=== PATIENT | female | born 1975 | race American Indian/Alaskan Native ===

== ENCOUNTER 2016-11-14 14:34 | Emergency (ER) | payer OTHER ==
[2016-11-14] MEDS ORDERED: Ketorolac 30 MG/ML SDV IVPUSH ONE (16:38)
--- NOTE | 2016-11-14 16:44 | EDM.PDOC ---
[id number] 4d HAVING SOME CHEST PAIN Time Seen by Provider: 11/14/16 14:45 Source of Information: Reports: Patient History Limitations: Reports: No Limitations - History of Present Illness INITIAL COMMENTS - FREE TEXT/NARRATIVE: pt arrived with chest pressure in the left chest. She has had this on and off for 2 weeks. She feels exercise sometimes makes it worse. She has not injured herself. Onset: Gradual Duration: Day(s): Location: Reports: Chest Associated Symptoms: Reports: Chest Pain, Other (pt had chest pressure) Left Chest Pain Score (Numeric/FACES): 2 - Related Data Allergies Allergy/AdvReac Type Severity Reaction Status Date / Time aspirin Allergy Other Verified 11/14/16 14:47 ibuprofen Allergy Hives Verified 11/14/16 14:47 Home Meds: Home Meds Acetaminophen [Tylenol Extra Strength] 1,000 mg PO ASDIRECTED 12/04/15 [History] Loratadine [Claritin] 10 mg PO DAILY 11/14/16 [History] Ranitidine [Zantac] 150 mg PO DAILY PRN 11/14/16 [History] Past Medical History HEENT History: Reports: Impaired Vision Gastrointestinal History: Reports: GERD 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: , Spontaneous Psychiatric History: Reports: Anxiety, Depression Hematologic History: Reports: Blood Transfusion(s) - Infectious Disease History Infectious Disease History: Reports: Chicken Pox - Past Surgical History HEENT Surgical History: Reports: Naso-Sinus Surgery GI Surgical History: Reports: Cholecystectomy Female Surgical History: Reports: D&C Social & Family History - Tobacco Use Smoking Status *Q: Never Smoker Second Hand Smoke Exposure: No - Caffeine Use Caffeine Use: Reports: Coffee, Energy Drinks, Soda - Recreational Drug Use Recreational Drug Use: No ED ROS GENERAL - Review of Systems Review Of Systems: See Below Constitutional: Reports: No Symptoms HEENT: Reports: No Symptoms Respiratory: Reports: No Symptoms Cardiovascular: Reports: Chest Pain, Other (chest pressure) Endocrine: Reports: No Symptoms GI/Abdominal: Reports: No Symptoms : Reports: No Symptoms Musculoskeletal: Reports: No Symptoms Skin: Reports: No Symptoms Neurological: Reports: No Symptoms ED EXAM, GENERAL - Physical Exam Exam: See Below Free Text/Narrative:: pt arrived with pain in the chest pressure type/ This has been going on and off for 2 weeks. Exam Limited By: No Limitations General Appearance: Alert, Anxious, Mild Distress Ears: Normal TMs Nose: Normal Inspection Throat/Mouth: Normal Inspection Head: Atraumatic Neck: Normal Inspection Respiratory/Chest: No Respiratory Distress Cardiovascular: Regular Rate, Rhythm GI/Abdominal: Soft, Non-Tender, No Distention (Female) Exam: Deferred Rectal (Female) Exam: Deferred Back Exam: Normal Inspection Extremities: Normal Inspection Neurological: Alert, Oriented, Normal Cognition Psychiatric: Anxious Course - Vital Signs Last Recorded V/S: Last Vital Signs Temp 37.1 C 11/14/16 14:44 Pulse 86 11/14/16 17:00 Resp 14 11/14/16 15:33 BP 116/88 11/14/16 17:00 Pulse Ox 95 11/14/16 17:00 - Orders/Labs/Meds Labs: Laboratory Tests 11/14/16 11/14/16 11/14/16 Range/Units 15:19 15:19 15:19 WBC 11.4 H (4.5-11.0) K/uL RBC 4.53 (3.30-5.50) M/uL Hgb 12.9 (12.0-15.0) g/dL Hct 40.1 (36.0-48.0) % MCV 89 (80-98) fL MCH 29 (27-31) pg MCHC 32 (32-36) % Plt Count 397 (150-400) K/uL Neut % (Auto) 69 H (36-66) % Lymph % (Auto) 23 L (24-44) % [place] % (Auto) 6 (2-6) % Eos % (Auto) 2 (2-4) % Baso % (Auto) 1 (0-1) % Sodium 137 L (140-148) mmol/L Potassium 4.0 (3.6-5.2) mmol/L Chloride 103 (100-108) mmol/L Carbon Dioxide 28 (21-32) mmol/L Anion Gap 10.0 (5.0-14.0) mmol/L BUN 11 (7-18) mg/dL Creatinine 0.6 (0.6-1.0) mg/dL Est Cr Clr Drug Dosing 106.55 mL/min Estimated GFR (MDRD) > 60 (>60) Glucose 103 (74-106) mg/dL Calcium 9.7 (8.5-10.1) mg/dL Total Bilirubin 0.9 (0.2-1.0) mg/dL AST 48 H (15-37) U/L ALT 59 (12-78) U/L Alkaline Phosphatase 117 H (46-116) U/L Creatine Kinase 59 (26-192) U/L Troponin I < 0.017 (0.000-0.056) ng/mL Total Protein 8.3 H (6.4-8.2) g/dL Albumin 3.5 (3.4-5.0) g/dL Globulin 4.8 H (2.3-3.5) g/dL Albumin/Globulin Ratio 0.7 L (1.2-2.2) Meds: Medications Discontinued Medications Generic Name Dose Route Start Last Admin Trade Name Freq PRN Reason Stop Dose Admin Ketorolac Tromethamine 30 mg 11/14/16 16:38 11/14/16 17:27 Toradol IVPUSH 11/14/16 16:39 Not Given ONETIME ONE - Re-Assessments/Exams Free Text/Narrative Re-Assessment/Exam: 11/14/16 16:41 pt had a chest xray that shoiwed no acute findings, her ekg looked ok. her lab work was normal. She has chest tenderness on palpation. 11/15/16 18:57 This appears to be muscle pain. Will set her up for a stress. Departure - Departure Time of Disposition: 16:42 Disposition: Home, Self-Care 01 Condition: Fair Clinical Impression: Atypical chest pain Instructions: Nonspecific Chest Pain Referrals: PCP,None [Primary Care Provider] - Forms: ED Department Discharge Care Plan Goals: ice or heat to the area, traodol 50mg tid fopr next 4 days, rtc for a exercise cardiolyte. rtc if this should get worse. r
[2016-11-14 17:30] VITALS: BP 116/88
--- NOTE | 2016-11-15 08:30 | CR ---
Chest 1V Frontal HISTORY: chest pressure. COMPARISON: None FINDINGS: Portable chest, 1520 hours. Lungs appear clear and normally aerated. Cardiomediastinal silhouette is within normal limits. No va scular redistribution or pleural fluid can be seen. Bony structures and soft tissues are unremarkabl e. IMPRESSION: No acute chest abnormality identified.
== END 2016-11-14 17:05 | disposition home or self-care (01) ==
LOC: JP.ED 14:34
DX: R07.89 Other chest pain (principal); F32.9 Major depressive disorder, single episode, unspecified; F41.9 Anxiety disorder, unspecified; Z88.6 Allergy status to analgesic agent; Z98.890 Other specified postprocedural states; Z90.49 Acquired absence of other specified parts of digestive tract; Z79.899 Other long term (current) drug therapy
CPT/HCPCS: 36415; 71010; 71010-26; 80053; 82550; 84484; 85025; 93005; 96374; 99285-25

== ENCOUNTER 2018-07-15 12:22 | Emergency (ER) | payer BC, OTHER ==
[2018-07-15 13:49] VITALS: BP 129/85
--- NOTE | 2018-07-15 13:55 | EDM.PDOC ---
ED HPI GENERAL MEDICAL PROBLEM - General Stated Complaint: FELL AND INJURED LEFT KNEE Time Seen by Provider: 07/15/18 13:50 Source of Information: Reports: Patient, Family, RN Notes Reviewed History Limitations: Reports: No Limitations - History of Present Illness INITIAL COMMENTS - FREE TEXT/NARRATIVE: 43-year-old female presents emergency department today following a fall at home she slipped and lost her balance her left knee buckled and went to the outside she then fell to the ground she cannot bear weight without pain - Related Data Allergies Allergy/AdvReac Type Severity Reaction Status Date / Time aspirin Allergy Other Verified 07/15/18 13:41 ibuprofen Allergy Hives Verified 07/15/18 13:41 Home Meds: Home Meds Acetaminophen [Tylenol Extra Strength] 1,000 mg PO ASDIRECTED 12/04/15 [History] Loratadine [Claritin] 10 mg PO DAILY 11/14/16 [History] Ranitidine [Zantac] 150 mg PO DAILY PRN 11/14/16 [History] Pen Needle, Diabetic [Pen Needle] 07/15/18 [History] metFORMIN [Glucophage XR] 07/15/18 [History] Past Medical History HEENT History: Reports: Impaired Vision Gastrointestinal History: Reports: GERD 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: , Spontaneous Psychiatric History: Reports: Anxiety, Depression Hematologic History: Reports: Blood Transfusion(s) - Infectious Disease History Infectious Disease History: Reports: Chicken Pox - Past Surgical History HEENT Surgical History: Reports: Naso-Sinus Surgery GI Surgical History: Reports: Cholecystectomy Female Surgical History: Reports: D&C Social & Family History - Tobacco Use Smoking Status *Q: Never Smoker - Caffeine Use Caffeine Use: Reports: Coffee, Energy Drinks, Soda Review of Systems - Review of Systems Review Of Systems: See Below Musculoskeletal: Reports: Joint Pain (Left knee pain) Neurological: Reports: No Symptoms ED EXAM, GENERAL - Physical Exam Exam: See Below Free Text/Narrative:: Examination left knee I don't appreciate any erythema there is no edema noted she is tender to the touch palpation along the lateral joint line, there is no tenderness to palpation along the medial joint line she tolerates of Garcia and valgus maneuver tolerates anterior drawer and Yao's maneuver Exam Limited By: No Limitations General Appearance: Alert, WD/WN, No Apparent Distress Respiratory/Chest: No Respiratory Distress Course - Vital Signs Last Recorded V/S: Last Vital Signs Temp 97.5 F 07/15/18 13:48 Pulse 90 07/15/18 13:48 Resp 14 07/15/18 13:48 BP 129/85 07/15/18 13:48 Pulse Ox 97 07/15/18 13:48 - Orders/Labs/Meds Orders: Active Orders 24 hr Category Date Time Status Knee 3V Lt [CR] Stat Exams 07/15/18 13:53 Taken Departure - Departure Time of Disposition: 14:52 Disposition: Home, Self-Care 01 Condition: Fair Clinical Impression: Left knee pain - Discharge Information Referrals: PCP,None [Primary Care Provider] - Forms: ED Department Discharge Additional Instructions: Continued use Tylenol and Motrin as needed for pain control, continue to use her crutches and knee brace as needed for pain control follow up with orthopedics next week - My Orders Last 24 Hours: My Active Orders 07/15/18 13:53 Knee 3V Lt [CR] Stat - Assessment/Plan Last 24 Hours: My Active Orders 07/15/18 13:53 Knee 3V Lt [CR] Stat Plan: Assessment Acuity = acute Site and laterality = left knee pain Etiology = secondary trauma Manifestations = none Location of injury = Home Lab values = knee film I did review films myself I cannot appreciate any acute process, the official read from radiology is pending Plan She is placed in a hinged knee brace and crutches is set up to see orthopedics next week she will use Tylenol Motrin as needed for pain control This note was dictated using [employer] voice recognition software please call with any questions on syntax or grammar.
--- NOTE | 2018-07-15 15:09 | CRLCR ---
INDICATION: pain, fall TECHNIQUE: Left knee 3 views. COMPARISON: None. FINDINGS: Bones: Alignment is normal. No fractures or bone lesions. Joint spaces: Unremarkable. Soft tissues: Unremarkable. IMPRESSION: Unremarkable left knee. Dictated by: Sreekanth Benito MD @ 07/15/2018 15:08:30 (Electronically Signed)
== END 2018-07-15 15:10 | disposition home or self-care (01) ==
LOC: JP.ED 12:22
DX: M25.562 Pain in left knee (principal); K21.9 Gastro-esophageal reflux disease without esophagitis; F41.9 Anxiety disorder, unspecified; F32.9 Major depressive disorder, single episode, unspecified; Z79.899 Other long term (current) drug therapy; W01.0XXA Fall on same level from slipping, tripping and stumbling without subsequent striking against object, initial encounter; Z88.6 Allergy status to analgesic agent; Z88.8 Allergy status to other drugs, medicaments and biological substances
CPT/HCPCS: 73562-LT; 99284

== ENCOUNTER 2020-09-21 23:17 | Emergency (ER) | payer SELFPAY ==
[2020-09-21] MEDS ORDERED: Alum Hydrox/Mag Hydrox/Simeth 15 ML, Lidocaine 2% 15 ML PO ONE ×2 (23:43)
--- NOTE | 2020-09-21 23:47 | EDM.PDOC ---
ED HPI GENERAL MEDICAL PROBLEM - General Chief Complaint: Chest Pain Stated Complaint: CHEST PAIN Time Seen by Provider: 09/21/20 23:39 Source of Information: Reports: Patient, Family, Old Records, RN Notes Reviewed History Limitations: Reports: No Limitations - History of Present Illness INITIAL COMMENTS - FREE TEXT/NARRATIVE: 45-year-old female presents emergency department with a complaint of chest pain, she states she had some chest pain yesterday but it resolved and then she had dinner tonight and after she ate dinner she describes some chest pressure rates it maybe 2 out of 10 it is constant in nature center of her chest she does feel short of breath no nausea no diaphoresis no history of cardiac disease does have a history of reflux Chest Pain Score (Numeric/FACES): 7 - Related Data Allergies Allergy/AdvReac Type Severity Reaction Status Date / Time aspirin Allergy Other Verified 09/21/20 23:30 ibuprofen Allergy Hives Verified 09/21/20 23:30 Home Meds: Home Meds Acetaminophen [Tylenol Extra Strength] 1,000 mg PO ASDIRECTED 12/04/15 [History] Loratadine [Claritin] 10 mg PO DAILY 11/14/16 [History] metFORMIN [Glucophage XR] 1 tab PO BID 07/15/18 [History] Dulaglutide [Trulicity] 0.5 ml SQ WEEKLY 09/21/20 [History] Omeprazole 1 cap PO DAILY 09/21/20 [History] Omeprazole 20 mg PO DAILY #30 tablet. 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: , Spontaneous Psychiatric History: Reports: Anxiety, Depression Endocrine/Metabolic History: Reports: Diabetes, Type II Hematologic History: Reports: Blood Transfusion(s) - Infectious Disease History Infectious Disease History: Reports: Chicken Pox - Past Surgical History HEENT Surgical History: Reports: Naso-Sinus Surgery Other HEENT Surgeries/Procedures: sinus surgery GI Surgical History: Reports: Cholecystectomy Female Surgical History: Reports: D&C Social & Family History - Tobacco Use Tobacco Use Status *Q: Never Tobacco User Second Hand Smoke Exposure: Yes - Caffeine Use Caffeine Use: Reports: Coffee, Energy Drinks, Soda, Tea - Recreational Drug Use Recreational Drug Use: No ED ROS GENERAL - Review of Systems Review Of Systems: See Below Constitutional: Reports: No Symptoms Respiratory: Reports: Shortness of Breath Cardiovascular: Reports: Chest Pain GI/Abdominal: Reports: No Symptoms ED EXAM, GENERAL - Physical Exam Exam: See Below Exam Limited By: No Limitations General Appearance: Alert, WD/WN, No Apparent Distress Respiratory/Chest: No Respiratory Distress, Lungs Clear, Normal Breath Sounds, No Accessory Muscle Use, Chest Non-Tender Cardiovascular: Regular Rate, Rhythm, No Murmur GI/Abdominal: Soft, Non-Tender #1 Interpretation EKG Date: 09/22/20 Time: 00:03 Rhythm: NSR [place]: Normal P-Wave: Present QRS: Normal ST-T: Normal QT: Normal Comparison: No Change Course - Vital Signs Last Recorded V/S: Last Vital Signs Temp 98.1 F 09/21/20 23:27 Pulse 104 H 09/21/20 23:27 Resp 16 09/21/20 23:27 BP 165/95 H 09/21/20 23:27 Pulse Ox 97 09/21/20 23:27 - Orders/Labs/Meds Orders: Active Orders 24 hr Category Date Time Status Cardiac Monitoring [RC] .As Directed Care 09/21/20 23:42 Active EKG Documentation Completion [RC] ASDIRECTED Care 09/21/20 23:43 Active Chest 2V [CR] Stat Exams 09/22/20 00:01 Taken EKG 12 Lead [EK] Stat Ther 09/21/20 23:42 Ordered Labs: Laboratory Tests 09/21/20 09/21/20 Range/Units 23:51 23:51 WBC 12.9 H (4.5-11.0) K/uL RBC 3.98 (3.30-5.50) M/uL Hgb 11.0 L (12.0-15.0) g/dL Hct 35.4 L (36.0-48.0) % MCV 89 (80-98) fL MCH 28 (27-31) pg MCHC 31 L (32-36) % Plt Count 382 (150-400) K/uL Neut % (Auto) 67 H (36-66) % Lymph % (Auto) 26 (24-44) % [place] % (Auto) 5 (2-6) % Eos % (Auto) 2 (2-4) % Baso % (Auto) 0 (0-1) % Sodium 142 (140-148) mmol/L Potassium 4.1 (3.6-5.2) mmol/L Chloride 104 (100-108) mmol/L Carbon Dioxide 27 (21-32) mmol/L Anion Gap 11.2 (5.0-14.0) mmol/L BUN 12 (7-18) mg/dL Creatinine 0.8 (0.6-1.0) mg/dL Est Cr Clr Drug Dosing 75.07 mL/min Estimated GFR (MDRD) > 60 (>60) Glucose 197 H (74-106) mg/dL Calcium 9.3 (8.5-10.1) mg/dL Total Bilirubin 0.5 (0.2-1.0) mg/dL AST 26 (15-37) U/L ALT 49 (12-78) U/L Alkaline Phosphatase 153 H (46-116) U/L Troponin I < 0.017 (0.000-0.056) ng/mL Total Protein 7.8 (6.4-8.2) g/dL Albumin 3.3 L (3.4-5.0) g/dL Globulin 4.5 H (2.3-3.5) g/dL Albumin/Globulin Ratio 0.7 L (1.2-2.2) Meds: Medications Discontinued Medications Generic Name Dose Route Start Last Admin Trade Name Freq PRN Reason Stop Dose Admin Al Hydroxide/Mg Hydroxide 15 0 ml 09/21/20 23:43 09/21/20 23:50 ml/ Lidocaine HCl 15 ml PO 09/21/20 23:44 30 ml ONETIME ONE Administration Departure - Departure Time of Disposition: 00:31 Disposition: Home, Self-Care 01 Condition: Fair Clinical Impression: Gastroesophageal reflux disease Qualifiers: Esophagitis presence: esophagitis presence not specified Qualified Code(s): K21.9 - Gastro-esophageal reflux disease without esophagitis Prescriptions: Omeprazole 20 mg PO DAILY #30 tablet. Instructions: Food Choices for Gastroesophageal Reflux Disease, Adult Referrals: Latrice Ivan MD [Primary Care Provider] - Forms: ED Department Discharge Additional Instructions: Your medication of omeprazole has been faxed to [facility], recommend restarting this medication 1 tablet once a day, please keep your follow-up appointment with your primary care next Saturday and discuss in the future Sepsis Event Note (ED) - Evaluation Sepsis Screening Result: No Definite Risk - Focused Exam Vital Signs: Vital Signs Temp Pulse Resp BP Pulse Ox 09/21/20 23:27 98.1 F 104 H 16 165/95 H 97 - My Orders Last 24 Hours: My Active Orders 09/21/20 23:42 Cardiac Monitoring [RC] .As Directed EKG 12 Lead [EK] Stat 09/21/20 23:43 EKG Documentation Completion [RC] ASDIRECTED 09/22/20 00:01 Chest 2V [CR] Stat - Assessment/Plan Last 24 Hours: My Active Orders 09/21/20 23:42 Cardiac Monitoring [RC] .As Directed EKG 12 Lead [EK] Stat 09/21/20 23:43 EKG Documentation Completion [RC] ASDIRECTED 09/22/20 00:01 Chest 2V [CR] Stat Plan: Assessment Acuity = acute Site and laterality = gastroesophageal reflux disease Etiology = unknown Manifestations = none Location of injury = Home Lab values = WBC elevated 12.9 consistent with leukocytosis, troponin was negative CMP negative EKG demonstrates a normal sinus rhythm chest x-ray I did review films myself I cannot appreciate any acute process, the official read from radiology is pending Plan She had good relief with a GI cocktail I talked her about her use of her omeprazole she has not been using it as of late prescription sent for 20 mg tablet total #30 once a day faxed to [facility] she is going to follow-up with her primary care next Saturday discuss reflux and a stress test This note was dictated using [employer] voice recognition software please call with any questions on syntax or grammar.
[2020-09-21 23:54] VITALS: BP 165/95; PULSE 104
--- NOTE | 2020-09-22 08:47 | CR ---
CHEST: 2 view CLINICAL HISTORY:Chest pain COMPARISON:2017 FINDINGS: The heart size, pulmonary vascularity and hilar structures are normal. No infiltrate effusion or pneumothorax is seen. IMPRESSION: No acute cardiopulmonary process.
== END 2020-09-22 00:42 | disposition home or self-care (01) ==
LOC: JP.ED 23:17
DX: K21.9 Gastro-esophageal reflux disease without esophagitis (principal); E11.9 Type 2 diabetes mellitus without complications; Z79.899 Other long term (current) drug therapy; Z79.84 Long term (current) use of oral hypoglycemic drugs; Z77.22 Contact with and (suspected) exposure to environmental tobacco smoke (acute) (chronic); Z88.8 Allergy status to other drugs, medicaments and biological substances
CPT/HCPCS: 36415; 71046; 80053; 84484; 85025; 93005; 99285; A9270; 99283

== ENCOUNTER 2021-05-10 12:53 | Emergency (ER) | payer BC ==
[2021-05-10 15:50] VITALS: BP 173/89; PULSE 104
[2021-05-10] MEDS ORDERED: Lisinopril 10 MG Tab PO ONE (15:58)
--- NOTE | 2021-05-10 16:12 | EDM.PDOC ---
ED HPI GENERAL MEDICAL PROBLEM - General Chief Complaint: Cardiovascular Problem Stated Complaint: MEDICAL VIA [place] Time Seen by Provider: 05/10/21 15:50 Source of Information: Reports: Patient, Old Records History Limitations: Reports: No Limitations - History of Present Illness INITIAL COMMENTS - FREE TEXT/NARRATIVE: 46 yo NA female presents with HTN. She has not been to see her provider in a long time. Has AODM. Today felt funny at work and when they checked her BP it was high so she panicked and came in. Is not on meds for BP. BP last August here in the ER was 165. No MEDINA or chest pain or SOB. Onset: Gradual Duration: Chronic, Getting Worse Location: Reports: Generalized Quality: Reports: Other (no pain) Severity: Moderate Improves with: Reports: Rest Worsens with: Reports: Other (? time) Context: Reports: Other (See HPI) Associated Symptoms: Reports: No Other Symptoms Treatments TOGGLER: Reports: Other (see below) (none) - Related Data Allergies Allergy/AdvReac Type Severity Reaction Status Date / Time aspirin Allergy Other Verified 05/10/21 15:35 ibuprofen Allergy Hives Verified 05/10/21 15:35 Home Meds: Home Meds Acetaminophen [Tylenol Extra Strength] 1,000 mg PO ASDIRECTED 12/04/15 [History] Loratadine [Claritin] 10 mg PO DAILY PRN 11/14/16 [History] metFORMIN [Glucophage XR] 1 tab PO DAILY 07/15/18 [History] Dulaglutide [Trulicity] 0.5 ml SQ WEEKLY 09/21/20 [History] Omeprazole 20 mg PO DAILY PRN 05/10/21 [History] Ondansetron [Zofran ODT] 4 mg PO Q4H PRN 05/10/21 [History] SUMAtriptan [Imitrex] 1 tab PO Q8H PRN 05/10/21 [History] lisinopriL [Lisinopril] 20 mg PO DAILY #15 tablet 05/10/21 [Rx] Past Medical History HEENT History: Reports: Impaired Vision Gastrointestinal History: Reports: GERD Genitourinary History: Reports: None 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: , Spontaneous Psychiatric History: Reports: Anxiety, Depression Endocrine/Metabolic History: Reports: Diabetes, Type II Hematologic History: Reports: Blood Transfusion(s) Immunologic History: Reports: Other (See Below) Other Immunologic History: has auto immune disease - Infectious Disease History Infectious Disease History: Reports: Chicken Pox - Past Surgical History Head Surgeries/Procedures: Reports: None HEENT Surgical History: Reports: Naso-Sinus Surgery Other HEENT Surgeries/Procedures: sinus surgery GI Surgical History: Reports: Cholecystectomy Female Surgical History: Reports: D&C Endocrine Surgical History: Reports: None Dermatological Surgical History: Reports: None Social & Family History - Tobacco Use Tobacco Use Status *Q: Never Tobacco User Second Hand Smoke Exposure: No - Caffeine Use Caffeine Use: Reports: Coffee, Energy Drinks, Soda, Tea - Recreational Drug Use Recreational Drug Use: No ED ROS GENERAL - Review of Systems Review Of Systems: See Below Constitutional: Reports: No Symptoms HEENT: Reports: No Symptoms Respiratory: Reports: No Symptoms Cardiovascular: Reports: Blood Pressure Problem Endocrine: Reports: No Symptoms GI/Abdominal: Reports: No Symptoms : Reports: No Symptoms Musculoskeletal: Reports: No Symptoms Skin: Reports: No Symptoms Neurological: Denies: Headache Psychiatric: Reports: No Symptoms ED EXAM, GENERAL - Physical Exam Exam: See Below Exam Limited By: No Limitations General Appearance: Alert, WD/WN, No Apparent Distress Eye Exam: Bilateral Eye: Normal Inspection Ears: Normal External Exam, Normal Canal, Hearing Grossly Normal Ear Exam: Bilateral Ear: Auricle Normal, Canal Normal Nose: Normal Inspection, No Blood Throat/Mouth: Normal Inspection, Normal Lips, Normal Oropharynx, Normal Voice, No Airway Compromise Head: Atraumatic, Normocephalic Neck: Normal Inspection Respiratory/Chest: No Respiratory Distress, Lungs Clear, Normal Breath Sounds, No Accessory Muscle Use Cardiovascular: Regular Rate, Rhythm, No Edema GI/Abdominal: Soft, Non-Tender Back Exam: Normal Inspection. No: CVA Tenderness (R), CVA Tenderness (L) Extremities: Normal Inspection, Normal Range of Motion, Non-Tender, No Pedal Edema Neurological: Alert, Oriented, CN II-XII Intact, Normal Cognition, No Motor/Sensory Deficits Psychiatric: Normal Affect, Normal Mood Skin Exam: Warm, Dry, Intact, Normal Color, No Rash Course - Vital Signs Last Recorded V/S: Last Vital Signs Temp 36.6 C 05/10/21 15:34 Pulse 104 H 05/10/21 15:49 Resp 16 05/10/21 15:34 BP 173/89 H 05/10/21 15:49 Pulse Ox 97 05/10/21 15:34 - Orders/Labs/Meds Meds: Medications Discontinued Medications Generic Name Dose Route Start Last Admin Trade Name Vibha PRN Reason Stop Dose Admin Lisinopril 20 mg 05/10/21 15:58 Lisinopril 10 Mg Tab PO 05/10/21 15:59 ONETIME ONE Departure - Departure Time of Disposition: 16:15 Disposition: Home, Self-Care 01 Condition: Fair Clinical Impression: HTN (hypertension) Qualifiers: Hypertension type: unspecified Qualified Code(s): I10 - Essential (primary) hypertension Prescriptions: lisinopriL [Lisinopril] 20 mg PO DAILY #15 tablet Instructions: Hypertension, Adult, [id number] Referrals: Latrice Ivan MD [Primary Care Provider] - Additional Instructions: Avoid salt. Take lisinopril 20 mg every morning. Recheck with your provider in a week, call for an appt. Sepsis Event Note (ED) - Focused Exam Vital Signs: Vital Signs Temp Pulse Resp BP Pulse Ox 05/10/21 15:49 104 H 173/89 H 05/10/21 15:48 163/96 H 05/10/21 15:34 36.6 C 109 H 16 174/103 H 97 05/10/21 15:32 36.6 C 109 H 16 174/103 H 97
== END 2021-05-10 16:25 | disposition home or self-care (01) ==
LOC: JP.ED 12:53
DX: I10 Essential (primary) hypertension (principal); E11.9 Type 2 diabetes mellitus without complications; K21.9 Gastro-esophageal reflux disease without esophagitis; Z88.8 Allergy status to other drugs, medicaments and biological substances; Z79.84 Long term (current) use of oral hypoglycemic drugs; Z79.899 Other long term (current) drug therapy
CPT/HCPCS: 99284; A9270

== ENCOUNTER 2024-06-24 14:15 | Emergency (ER) | payer BC ==
[2024-06-24 16:10] LABS: BASOPHILS ABSOLUTE AUTO 0.06 K/uL (0.00-0.10); BASOPHILS PERCENT AUTO 0.4 % (0.1-1.3); EOSINOPHILS ABSOLUTE AUTO 0.16 K/uL (0.00-0.40); EOSINOPHILS PERCENT AUTO 1.1 % (0.0-5.4); HEMATOCRIT 35.4 % (34.3-46.0); HEMOGLOBIN 11.6 g/dL (11.2-15.5); IMMATURE GRAN ABSOLUTE AUTO 0.06 K/uL (0.00-0.23); IMMATURE GRAN PERCENT AUTO 0.4 % (0.0-0.7); LYMPHOCYTES ABSOLUTE AUTO 3.11 K/uL (0.8-3.3); LYMPHOCYTES PERCENT AUTO 21.2 % (11.4-47.7); MEAN CORPUSCULAR HEMOGLOBIN 28.3 pg (31.6-35.5); MEAN CORPUSCULAR HGB CONC 32.8 g/dL (31.6-35.5); MEAN CORPUSCULAR VOLUME 86.3 fL (81.4-99.0); MONOCYTES ABSOLUTE AUTO 0.62 K/uL (0.20-0.90); MONOCYTES PERCENT AUTO 4.2 % (3.3-12.6); NEUTROPHILS ABSOLUTE AUTO 10.66 K/uL (1.0-7.6); NEUTROPHILS PERCENT AUTO 72.7 % (40.0-78.1); PLATELET COUNT,PLT 374 K/uL (130-375); WHITE BLOOD CELL COUNT,WBC 14.7 K/uL (3.2-11.0)
[2024-06-24 16:33] LABS: ANION GAP 13.2 mmol/L (5.0-14.0); BLOOD UREA NITROGEN,BUN 9 mg/dL (7-18); CALCIUM 9.6 mg/dL (8.5-10.1); CARBON DIOXIDE,CO2 27 mmol/L (21-32); CHLORIDE,CL 101 mmol/L (100-108); CREATININE 0.6 mg/dL (0.6-1.0); EST CRCL DRUG DOSING (CG) 97.94 mL/min; ESTIMATED GFR 110 mL/min (>60); GLUCOSE RANDOM 121 mg/dL (74-106); POTASSIUM,K 4.2 mmol/L (3.6-5.2); SODIUM,NA 137 mmol/L (140-148); TROPONIN I HIGH SENSITIVITY < 4.0 pg/mL (<=60.3)
[2024-06-24 16:55] VITALS: BP 121/71; PULSE 80
== END 2024-06-24 17:32 | disposition home or self-care (01) ==
LOC: JP.ED 14:15
DX: F41.0 Panic disorder [episodic paroxysmal anxiety] (principal); I10 Essential (primary) hypertension; K21.9 Gastro-esophageal reflux disease without esophagitis; E11.9 Type 2 diabetes mellitus without complications; Z90.49 Acquired absence of other specified parts of digestive tract; Z88.6 Allergy status to analgesic agent; Z88.8 Allergy status to other drugs, medicaments and biological substances; Z79.84 Long term (current) use of oral hypoglycemic drugs; Z79.899 Other long term (current) drug therapy
CPT/HCPCS: 36415; 80048; 84484; 85025; 93005; 99285

== ENCOUNTER 2024-10-19 16:16 | Emergency (ER) | payer BC ==
[2024-10-19 16:37] VITALS: BP 164/92; PULSE 68
[2024-10-19 17:07] LABS: BASOPHILS ABSOLUTE AUTO 0.05 K/uL (0.00-0.10); BASOPHILS PERCENT AUTO 0.5 % (0.1-1.3); EOSINOPHILS PERCENT AUTO 2.8 % (0.0-5.4); HEMATOCRIT 34.5 % (34.3-46.0); IMMATURE GRAN ABSOLUTE AUTO 0.03 K/uL (0.00-0.23); IMMATURE GRAN PERCENT AUTO 0.3 % (0.0-0.7); LYMPHOCYTES ABSOLUTE AUTO 2.91 K/uL (0.8-3.3); LYMPHOCYTES PERCENT AUTO 27.2 % (11.4-47.7); MEAN CORPUSCULAR HEMOGLOBIN 28.8 pg (31.6-35.5); MEAN CORPUSCULAR HGB CONC 31.9 g/dL (31.6-35.5); MEAN CORPUSCULAR VOLUME 90.3 fL (81.4-99.0); MONOCYTES ABSOLUTE AUTO 0.65 K/uL (0.20-0.90); MONOCYTES PERCENT AUTO 6.1 % (3.3-12.6); NEUTROPHILS ABSOLUTE AUTO 6.77 K/uL (1.0-7.6); NEUTROPHILS PERCENT AUTO 63.1 % (40.0-78.1); PLATELET COUNT,PLT 320 K/uL (130-375); RED BLOOD CELL COUNT 3.82 M/uL (3.77-5.24); WHITE BLOOD CELL COUNT,WBC 10.7 K/uL (3.2-11.0)
[2024-10-19 17:28] LABS: A/G RATIO 0.8 (1.2-2.2); ALANINE AMINOTRANSFERASE,ALT 101 U/L (12-78); ALBUMIN 3.2 g/dL (3.4-5.0); ALKALINE PHOSPHATASE 149 U/L (46-116); ASPARTATE AMNIOTRANSFERASE,AST 62 U/L (15-37); BILIRUBIN TOTAL 0.7 mg/dL (0.2-1.0); BLOOD UREA NITROGEN,BUN 12 mg/dL (7-18); CALCIUM 9.9 mg/dL (8.5-10.1); CARBON DIOXIDE,CO2 28 mmol/L (21-32); CHLORIDE,CL 105 mmol/L (100-108); CREATININE 0.7 mg/dL (0.6-1.0); EST CRCL DRUG DOSING (CG) 83.95 mL/min; ESTIMATED GFR 106 mL/min (>60); GLUCOSE RANDOM 99 mg/dL (74-106); PROTEIN TOTAL,TP 7.3 g/dL (6.4-8.2); SODIUM,NA 139 mmol/L (140-148)
[2024-10-19] MEDS: Ketorolac 30 MG/ML SDV IM ONE (17:39)
[2024-10-19] MEDS: Acetaminophen/HYDROcodone 325-5 MG Tab PO ONE (18:03)
== END 2024-10-19 18:15 | disposition home or self-care (01) ==
LOC: JP.ED 16:16
DX: R10.84 Generalized abdominal pain (principal); R10.11 Right upper quadrant pain; I10 Essential (primary) hypertension; K21.9 Gastro-esophageal reflux disease without esophagitis; E11.9 Type 2 diabetes mellitus without complications; Z90.49 Acquired absence of other specified parts of digestive tract; Z88.6 Allergy status to analgesic agent; Z88.8 Allergy status to other drugs, medicaments and biological substances; Z79.84 Long term (current) use of oral hypoglycemic drugs; Z79.899 Other long term (current) drug therapy
CPT/HCPCS: 36415; 80053; 83690; 85025; 99284; A9270